=== PATIENT | male | born 1980 | race Caucasian/White ===

== ENCOUNTER 2017-12-29 14:15 | Emergency (ER) | payer BC ==
--- NOTE | 2017-12-29 15:05 | ED ---
Back Pain - HPI Summary HPI Summary: This is winifredibsheila Keating documenting for attending Cory Mckeon MD. This patient is a 37 year old M presenting to [facility] accompanied by a woman and child with a chief complaint of back spasms that worsened this morning. The initial spasms started yesterday morning when the pt was exercising and didnt stretch. The patient rates the pain 4/10 in severity. Patient reports bilateral lower back pain and spasms, as well as being locked up. PMHx three knee surgeries. No SHx of smoking or drinking. Possible Penicillin allergy. - History of Current Complaint Chief Complaint: EDBackInjuryPain Stated Complaint: BACK PAIN Time Seen by Provider: 12/29/17 14:44 Hx Obtained From: Patient Onset/Duration: Gradual Onset, Lasting Hours - 24 hours Onset/Duration: Started Days Ago - 1 Timing: Constant Back Pain Location: Is Discrete @ - lower lumbar musculature Severity Initially: Moderate Severity Currently: Moderate Pain Intensity: 4 Pain Scale Used: 0-10 Numeric Character: Spasmodic Aggravating Symptom(s): Lifting, Bending Associated Signs And Symptoms: Positive: Pain with Weight Bearing - Allergies/Home Medications Allergies/Adverse Reactions: Allergies Allergy/AdvReac Type Severity Reaction Status Date / Time No Known Allergies Allergy Verified 12/29/17 14:31 PMH/Surg Hx/FS Hx/Imm Hx Musculoskeletal History: Reports: Other Musculoskeletal History - muscle spasms lower back Opthamlomology History: Denies: Hx Legally Blind EENT History: Denies: Hx Deafness - Surgical History Surgery Procedure, Year, and Place: 3 previous knee surgeries Infectious Disease History: No Infectious Disease History: Denies: Traveled Outside the [place] in Last 30 Days - Family History Known Family History: Positive: Other - Back spasms - Social History Alcohol Use: Rare Substance Use Type: Reports: None Hx Tobacco Use: No Smoking Status (MU): Never Smoked Tobacco Review of Systems Negative: Fever Negative: Vomiting Positive: Other - lower back spasms All Other Systems Reviewed And Are Negative: Yes Physical Exam - Summary Physical Exam Summary: This patient is a 37 year old M presenting to [facility] accompanied by a woman and child with a chief complaint of back spasms that worsened this morning. The initial spasms started yesterday morning when the pt was exercising and didnt stretch. The patient rates the pain 4/10 in severity. Patient reports bilateral lower back pain and spasms, as well as being locked up. PMHx three knee surgeries. No SHx EtOH use. Former smoker. Possible Penicillin allergy. Appearance: Well appearing, no pain distress Skin: warm, dry, reflects adequate perfusion Head/face: normal Eyes: EOMI, PANCHO ENT: normal Neck: supple, non-tender Respiratory: CTA, breath sounds present Cardiovascular: RRR, pulses symmetrical Abdomen: non-tender, soft Bowel Sounds: present Musculoskeletal: Strength/ROM intact. Tenderness and spasms bilateral lower lumbar musculature. Nml movement in the LEs. Antalgic gait. Neuro: normal, sensory motor intact, A&Ox3 Triage Information Reviewed: Yes Vital Signs On Initial Exam: Initial Vitals Temp Pulse Resp BP Pulse Ox 98.9 F 66 18 128/85 97 12/29/17 14:15 12/29/17 14:15 12/29/17 14:15 12/29/17 14:15 12/29/17 14:15 Vital Signs Reviewed: Yes Procedures - Procedure Summary Procedure Summary: Trigger point injection of the lumbar spine: Reason for injection is pain control. Patient was verbally consented. He was laid prone and his low lumbar musculature was cleaned with ChloraPrep. A total of 20 cc of 0.5% bupivacaine was injected in divided aliquots throughout the lumbar musculature. There is massage of the tissues. His pain relief was modest. There were no complications and he tolerated this well. Diagnostics - Vital Signs Vital Signs Temp Pulse Resp BP Pulse Ox 12/29/17 14:36 98.2 F 59 18 152/77 97 12/29/17 14:15 98.9 F 66 18 128/85 97 - Laboratory Lab Statement: Any lab studies that have been ordered have been reviewed, and results considered in the medical decision making process. Re-Evaluation - Re-Evaluation First Eval Re-Evaluation Time: 15:54 Comment: The patient is still stiff in his lower back. Second Eval Re-Evaluation Time: 16:53 Change: Improved Comment: Pt is feeling better and wants to go home Back Pain Course/Dx - Course Course Of Treatment: Patient had minimal relief after trigger point injection. He had been given NSAID plus muscle relaxer. This helped minimally as well. He was given pain medication as well as Ativan intramuscularly with some benefit. He is able to walk though with some antalgia. He does have relationship with a chiropractor and will see him tomorrow morning. There is no neurologic symptoms and no evidence for cauda equina or conus medullaris syndrome. There is no history of distinct trauma. - Diagnoses Differential Diagnosis/HQI/PQRI: Positive: Herniated Disc, Strain, Sprain Provider Diagnoses: Acute lumbar myofascial strain Discharge - Sign-Out/Discharge Documenting (check all that apply): Patient Departure - Discharge - Discharge Plan Condition: Improved Disposition: HOME Prescriptions: Cyclobenzaprine TAB* [Flexeril 10 MG TAB*] 10 mg PO TID PRN #15 tab PRN Reason: muscle pain Hydrocodone/Acetaminophen [Hydrocodone-Acetamin 5-325 mg] 1 each PO TID PRN #10 tablet MDD 3 PRN Reason: Severe Pain Naproxen [Naproxen 500 mg tab] 500 mg PO BID PRN #10 tablet.dr MUÑOZ Reason: Pain Patient Education Materials: Low Back Strain (ED), Lower Back Exercises (ED) Referrals: [facility] [Outside] Additional Instructions: Call your chiropractor first thing in the morning and schedule appointment to be seen as soon as possible. Return with numbness in legs, weakness, numbness in the saddle area, difficulty with bowel or bladder, uncontrolled pain or other concerns as discussed. - Billing Disposition and Condition Condition: IMPROVED Disposition: Home
[2017-12-29] MEDS ORDERED: Naproxen TAB* 250 MG PO ONE (15:18)
[2017-12-29] MEDS ORDERED: Cyclobenzaprine TAB* 10 MG PO ONE (15:18)
[2017-12-29] MEDS ORDERED: Morphine VIAL* 4 MG/ML VIAL (1 ml vial) IV ONE (15:54)
[2017-12-29] MEDS ORDERED: LORazepam INJ* 2 MG/ML 1 ML VIAL IM ONE (15:54)
[2017-12-29 17:55] VITALS: BP 103/64
== END 2017-12-29 17:54 | disposition home or self-care (01) ==
LOC: ED 14:15
DX: S39.012A Strain of muscle, fascia and tendon of lower back, initial encounter (principal); X58.XXXA Exposure to other specified factors, initial encounter; Y93.B9 Activity, other involving muscle strengthening exercises; Y92.9 Unspecified place or not applicable; M62.830 Muscle spasm of back
CPT/HCPCS: 96372; 96374; 99283; A9270-GY; J2060; J2270